=== PATIENT | male | born 2000 | race Caucasian/White ===

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

== ENCOUNTER → 2019-09-10 | Outpatient (CLI) | payer OTHER ==
--- NOTE | 2019-09-10 09:51 | Diagnostic Imaging Report ---
PROCEDURE: MRI right joint lower extremity without contrast. TECHNIQUE: Multiplanar, multisequence non contrast-enhanced MRI of the right lower extremity was accomplished. INDICATION: Injury, knee pain. COMPARISON: There are no prior studies available for comparison. FINDINGS: On the proton-dense fat-sagittal series, there is a vague area of altered signal involving the inferior articular surface of the root of the lateral meniscus. This finding is difficult to appreciate on the coronal series but I am suspicious that there is a tear involving the root of the lateral meniscus. The anterior horn of the lateral meniscus appears to be intact. There is no evidence for a tear of the medial meniscus. The anterior and posterior cruciate ligaments, the quadriceps and infrapatellar tendons, the collateral ligaments, the biceps femoris tendon, the iliotibial band, and the medial and lateral retinaculum are intact. The knee joint is well maintained. There is no abnormal signal arising from the osseous structures to indicate bone edema or fracture. There is a very small joint effusion present. There is no sign of a Hadley's cyst. IMPRESSION: 1. There is a question of a tear involving the root of the lateral meniscus. The medial meniscus is intact. 2. There is no evidence for an acute injury of the major ligaments and tendons. 3. The knee joint itself is well maintained. There is no acute bony abnormality appreciated. 4. There is a very small joint effusion. Dictated by: Dictated on workstation # [id number]
== END ==
LOC: RAD 07:42
PROVIDERS: ATTEND Nurse Practitioner
DX: S83.271D Complex tear of lateral meniscus, current injury, right knee, subsequent encounter (principal)
CPT/HCPCS: 73721

== ENCOUNTER 2021-01-29 00:16 | Emergency (ER) | payer OTHER ==
[~2021-01-29] VITALS: Ht 188 cm; Wt 102.0 kg
--- NOTE | 2021-01-29 00:35 | ED GU-Male ---
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 ALSO HAD EPIDIDYMITIS ON THE LEFT SIDE 6-7 YEARS AGO, AND THIS DOES NOT FEEL THE SAME. [facility] Allergies and Home Medications Allergies Coded Allergies: No Known Drug Allergies (Unverified , 01/29/21) Home Medications Ketorolac Tromethamine 10 Mg Tablet, 10 MG PO Q6H Prescribed by: DIMITRY CRAWFORD on 01/29/21 0331 Patient Home Medication List Home Medication List Reviewed: Yes Review of Systems Review of Systems Constitutional: no symptoms reported Respiratory: no symptoms reported Cardiovascular: no symptoms reported Gastrointestinal: no symptoms reported Genitourinary: see HPI Musculoskeletal: no symptoms reported Skin: no symptoms reported Psychiatric/Neurological: No Symptoms Reported Endocrine: No Symptoms Reported Past Agexzzv-Tzxcpr-Qydwth Hx Past Med/Social Hx: Reviewed and Corrections made Patient Social History Alcohol Use: Denies Use Smoking Status: Never a Smoker 2nd Hand Smoke Exposure: No Recent Hopitalizations: No Seasonal Allergies Seasonal Allergies: No Past Medical History Surgeries: Yes (LEFT TESTICULAR TORSION SURGERY: ) Orthopedic, Testicular Respiratory: No Cardiac: No Neurological: No Genitourinary: Yes (LEFT TESTICULAR TORSION; EPIDIDYMITIS) Gastrointestinal: No Musculoskeletal: No Endocrine: No HEENT: No Cancer: No Psychosocial: No Integumentary: No Blood Disorders: No Physical Exam Vital Signs Vital Signs - First Documented 01/29/21 00:24 Temp 36.9 Pulse 71 Resp 18 B/P (MAP) 150/87 (108) Pulse Ox 97 O2 Delivery Room Air Capillary Refill : Height, Weight, BMI Height: '" Weight: lbs. oz. kg; BMI Method: General Appearance: WD/WN, no apparent distress Gastrointestinal: non tender, soft Male: normal genitalia, no hernia; No erythema, No inguinal tenderness, No testicular tenderness; other (NO MASSES, NO EPIDIDYMAL TENDERNESS. NO SWELLING. NO REDNESS. 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, no motor/sensory deficits, alert, normal mood/affect, oriented x 3 Progress/Results/Core Measures Suspected Sepsis SIRS Temperature: Pulse: Respiratory Rate: Blood Pressure / Mean: Results/Orders Lab Results Laboratory Tests Test 01/29/21 00:30 Range/Units Urine Color YELLOW Urine Clarity CLEAR Urine pH 6.5 5-9 Urine Specific [place] 1.020 1.016-1.022 Urine Protein NEGATIVE NEGATIVE Urine Glucose (UA) NEGATIVE NEGATIVE Urine Ketones NEGATIVE NEGATIVE Urine Nitrite NEGATIVE NEGATIVE Urine Bilirubin NEGATIVE NEGATIVE Urine Urobilinogen 0.2 < = 1.0 MG/DL Urine Leukocyte Esterase NEGATIVE NEGATIVE Urine RBC (Auto) NEGATIVE NEGATIVE Urine RBC NONE /HPF Urine WBC NONE /HPF Urine Squamous Epithelial Cells 0-2 /HPF Urine Crystals NONE /LPF Urine Bacteria NEGATIVE /HPF Urine Casts NONE /LPF Urine Mucus NEGATIVE /LPF Urine Culture Indicated NO My Orders Orders - DIMITRY CRAWFORD DO Ua Culture If Indicated (01/29/21 00:30) Neis Rito Dna Urine Test (01/29/21 00:31) Chlamydia Trachomatis Urine (01/29/21 00:31) Us Scrotum (Testicle) [id number] (01/29/21 01:17) Ketorolac Injection (Toradol Injection) (01/29/21 01:30) Ct Abd/Pelvis Wo(Kidney Stone) (01/29/21 02:08) Medications Given in ED Current Medications Medications Dose Ordered Sig/[place] Route Start Time Stop Time Status Last Admin Dose Admin Ketorolac Tromethamine 60 mg ONCE ONCE IM 01/29/21 01:30 01/29/21 01:32 DC 01/29/21 01:24 60 MG Vital Signs/I&O 01/29/21 01/29/21 01/29/21 00:24 01:24 03:41 Temp 36.9 36.9 36.7 Pulse 71 55 Resp 18 16 B/P (MAP) 150/87 (108) 128/65 (108) Pulse Ox 97 98 O2 Delivery Room Air Room Air Capillary Refill : Progress Note : Progress Note GIVEN TORADOL WITH SIGNIFICANT IMPROVEMENT IN PAIN Diagnostic Imaging Comments ULTRASOUND OF SCROTUM--NO ACUTE PROCESS, SMALL LEFT VARICOSITIES--PER [facility] VIA FAX AT [address]255 CT ABDOMEN/PELVIS--NO ACUTE PROCESS, PER [facility] VIA FAX AT 0325 Reviewed: Reviewed by Me Departure Impression Primary Impression: Left testicular pain Additional Impressions: POSSIBLE GROIN STRAIN LEFT SIDED VARICOCOELE Disposition: HOME, SELF-CARE Condition: Improved Departure-Patient Inst. Referrals: [facility] (PCP/Family) Primary Care Physician Patient Instructions: Groin Strain (DC), Hydrocele/Varicocele (DC) Add. Discharge Instructions: HOME, REST AVOID ANY LIFTING, EXERCISE, ETC, FOR THE NEXT FEW DAYS FOLLOW UP WITH [facility] ON MONDAY IF NO BETTER, RETURN TO ER IF WORSE All discharge instructions reviewed with patient and/or family. Voiced understanding. Scripts Ketorolac Tromethamine (Ketorolac Tromethamine) 10 Mg Tablet 10 MG PO Q6H for Pain, #15 TAB Prov: DIMITRY CRAWFORD DO 01/29/21 DIMITRY CRAWFORD DO Jan 29, 2021 00:35
[2021-01-29 00:39] LABS: BILIRUBIN,URINE NEGATIVE (NEGATIVE); CLARITY,URINE CLEAR; COLOR,URINE YELLOW; GLUCOSE, URINE (UA) NEGATIVE (NEGATIVE); KETONES,URINE NEGATIVE (NEGATIVE); LEUKOCYTE ESTERASE ,URINE NEGATIVE (NEGATIVE); NITRITE,URINE NEGATIVE (NEGATIVE); PH,URINE 6.5 (5-9); PROTEIN,URINE NEGATIVE (NEGATIVE)
[2021-01-29 01:15] LABS: BACTERIA,URINE NEGATIVE /HPF; SQUAMOUS EPITHELIAL CELL,UR 0-2 /HPF
[2021-01-29] MEDS ORDERED: KETOROLAC 60 MG/2 ML VIAL IM ONE (01:30)
[2021-01-29] MEDS ORDERED: KETO10TA PO (03:31)
[2021-01-29 03:41] VITALS: BP 128/65
--- NOTE | 2021-01-29 06:23 | Diagnostic Imaging Report ---
PROCEDURE: CT urinary tract, rule out kidney stone. TECHNIQUE: Multiple contiguous axial images were obtained through the abdomen and pelvis without the use of intravenous contrast. Auto Exposure Controls were utilized during the CT exam to meet ALARA standards for radiation dose reduction. INDICATION: Left testicular pain x5 days The lung bases are clear. The liver appears normal. Gallbladder appears normal. Pancreas appears normal. Spleen is not enlarged. Kidneys and adrenals appear normal. The appendix is normal. Small bowel is not dilated. Colon is unremarkable. Urinary bladder is normal. Prostate and urethra are normal. There is no intraperitoneal free air or free fluid. IMPRESSION: Negative CT abdomen and pelvis I agree with preliminary interpretation. Dictated by: Dictated on workstation # [id number]
--- NOTE | 2021-01-29 08:51 | Diagnostic Imaging Report ---
INDICATION: LEFT TESICULAR PAIN X5 DAYS INCREASING IN SEVERITY. TECHNIQUE: Real-time grayscale sonographic imaging and color vascular evaluation of the scrotum. CORRELATION STUDY: None FINDINGS: RIGHT TESTICLE: 5.3 x 3.3 x 2.3 cm. LEFT TESTICLE: 4.6 x 3.5 x 2.6 cm. The testicles are in normal location and demonstrate homogeneous echotexture. There is vascular flow to the testicles. The epididymides appear unremarkable. Small varicocele on the left. IMPRESSION: 1. Unremarkable scrotal ultrasound examination. 2. Small left-sided varicosities. Initial report was provided by Jason. Dictated by: Dictated on workstation # [id number]
== END 2021-01-29 03:43 | disposition home or self-care (01) ==
LOC: EDUNIT# 00:16 → ER 00:20
DX: N50.812 Left testicular pain (principal); I86.1 Scrotal varices
CPT/HCPCS: 36415; 74176; 76870; 81000; 87491; 87591